=== PATIENT | male | born 1990 | race Caucasian/White ===

== ENCOUNTER 2024-02-04 08:55 | Emergency (ER) | payer OTHER, SELFPAY ==
[2024-02-04] MEDS ORDERED: HYDROcodone/Acetaminophen 10/325 mg Tablet ONE (09:20)
[2024-02-04] MEDS ORDERED: Morphine 4 MG/ML VIAL ONE (09:26)
[2024-02-04] MEDS ORDERED: Ondansetron PF 4 MG/2 ML Vial ONE ×2 (09:26→10:14)
[2024-02-04 09:50] LABS: #Basophils 0.06 10x3/uL (0.0-0.2); %Basophils 0.4 % (0.0-1.0); %Eosinophils 0.5 % (0.0-10.0); %Lymphocytes 10.6 % (21.0-51.0); %Monocytes 6.3 % (0.0-10.0); %Neutrophils 81.8 % (42.0-75.0); Hematocrit 47.6 % (42.0-52.0); Mean Corpuscular HGB CONC 31.5 g/dL (32.0-36.0); Mean Corpuscular Hemoglobin 27.9 pg (27.0-31.0); Mean Corpuscular Volume 88.5 fL (78.0-98.0); Mean Platelet Volume 9.7 fL (7.4-10.4); Platelet Count 262 10x3/uL (130-400); RBC Distribution Width 14.3 % (11.5-14.5); Red Blood Cell (RBC) Count 5.38 mill/uL (4.70-6.10)
[2024-02-04 10:03] LABS: Bacteria/HPF None Seen HPF (None Seen); Bilirubin Negative (Negative); Blood, Urine Negative (Negative); CAUTI Indications for Culture Pelvic or flank pain; Clarity Clear (Clear); Glucose, Urine (Dipstick) Normal (Negative); Ketone, Urine Negative (Negative); Leukocyte Negative Leu/uL (Negative); Nitrite Negative (Negative); Protein, Urine (Dipstick) Negative (Neg-Trace); RBC/HPF 0-3 HPF (0-3); Specific Gravity, Urine 1.016 (1.002-1.036); Squamous Epithelial None Seen HPF (0-3); Urobilinogen 3 mg/dL (Less than 2); WBC/HPF 0-3 HPF (0-3)
[2024-02-04 10:05] LABS: Urine Culture Reflex No No
[2024-02-04 10:10] LABS: ALT (SGPT) 138 U/L (8-55); AST (SGOT) 108 U/L (5-34); Albumin 3.6 g/dL (3.5-5.0); Alkaline Phosphatase 103 U/L (40-110); Anion Gap 12 mmol/L (10-20); BUN (Urea Nitrogen) 8 mg/dL (8.9-20.6); Bilirubin, Total 0.6 mg/dL (0.2-1.2); Calc. Creatinine Clearance 0 mL/min (70-130); Calcium 9.3 mg/dL (7.8-10.44); Carbon Dioxide 27 mmol/L (22-29); Chloride 100 mmol/L (98-107); Estimated GFR 119; Globulin 4.4 g/dL (2.4-3.5); Glucose 118 mg/dL (70-105); Potassium 4.1 mmol/L (3.5-5.1)
[2024-02-04] MEDS ORDERED: Ketorolac Tromethamine 30 MG (1 mL) VIAL ONE (10:14)
[2024-02-04 10:33] LABS: Sodium 135 mmol/L (136-145)
[2024-02-04 10:51] LABS: INR-International Normal Ratio 1.1; PTT 26.8 sec (22.9-36.1); Prothrombin Time 13.7 sec (12.0-14.7)
[2024-02-04] MEDS ORDERED: Lidocaine 4% Patch ONE (12:24)
[2024-02-04] MEDS ORDERED: cefTRIAXone (ROCEPHIN) 1 GM VIAL ONE (12:24)
[2024-02-04] MEDS ORDERED: Lidocaine 1% MPF 2 ML VIAL ONE (12:24)
[2024-02-04] MEDS ORDERED: Cyclobenzaprine 10 MG TAB ONE (12:24)
[2024-02-04 15:36] LABS: Chlam.trachomatis by PCR,Urine Not Detected (NotDetected); GC N.gonorrhoeae PCR,UrineVOID Not Detected (NotDetected)
== END 2024-02-04 12:57 | disposition home or self-care (01) ==
LOC: ERS 08:55
DX: N45.3 Epididymo-orchitis (principal); M54.50 Low back pain, unspecified
CPT/HCPCS: 72100; 76870; 80053; 81001; 85025; 85610; 85730; 87491; 87591; 93976; 96372; 96374; 96375; J0696; J1885; J2272; J2405